=== PATIENT | female | born 1990 | race Hispanic/Latino ===

== ENCOUNTER 2017-02-20 14:46 | Emergency (ER) | payer MEDICAID, OTHER ==
[~2017-02-20 14:46] MED LIST: DOCU-116 PO; IBUP-2071 PO
[2017-02-20 15:08] LABS: APPEARANCE,URINE Clear (CLEAR); BILIRUBIN,URINE Negative (NEGATIVE); COLOR,URINE Yellow (YELLOW); GLUCOSE, URINE (UA) Negative (NEGATIVE); KETONES,URINE Negative (NEGATIVE); LEUKOCYTE ESTERASE ,URINE Large (NEGATIVE); NITRATE,URINE Negative (NEGATIVE); OCCULT BLOOD,URINE Negative (NEGATIVE); PROTEIN,URINE Negative (NEGATIVE)
[2017-02-20 15:09] LABS: HCG,QUAL RESULT POSITIVE (NEGATIVE)
[2017-02-20 15:18] LABS: BACTERIA,URINE Few /HPF (None Seen); RBC,URINE None Seen /HPF (0-1)
[2017-02-20 16:35] LABS: BASOPHILS % (AUTO) 0.5 % (0.0-5.0); EOSINOPHILS % (AUTO) 2.6 % (0.0-8.0); HEMATOCRIT 39.5 % (36-48); MEAN CORPUSCULAR HGB CONC 33.5 g/dL (32.0-36.0); MEAN CORPUSCULAR VOLUME 86.6 fL (79-99); MONOCYTES % (AUTO) 6.7 % (3.0-13.0); NEUTROPHILS % (AUTO) 67.2 % (40.0-77.0); NUCLEATED RED BLOOD CELLS 0.1 % (0.0-0.19); PLATELET COUNT (AUTO) 198 K/uL (130-400); RED BLOOD CELL COUNT(AUTO) 4.56 MIL/uL (4.00-5.50); RED CELL DISTRIBUTION WIDTH 15.4 % (11.0-15.5); WHITE BLOOD COUNT (AUTO) 8.4 K/uL (4.8-10.8)
[2017-02-20 16:45] LABS: CREATININE 0.5 mg/dL (0.5-1.5); POTASSIUM 3.5 mmol/L (3.5-5.1)
[2017-02-20 17:11] LABS: ALBUMIN 3.2 g/dL (3.5-5.0); BILIRUBIN,TOTAL 0.3 mg/dL (0.2-1.0); TOTAL PROTEIN, SERUM 7.5 g/dL (6.0-8.3)
== END 2017-02-20 17:31 | disposition home or self-care (01) ==
LOC: EDH 14:46
DX: O20.0 Threatened abortion (principal); Z3A.10 10 weeks gestation of pregnancy
CPT/HCPCS: 36415; 76801; 80053; 81001; 81025; 84702; 85025; 86900; 86901

== ENCOUNTER 2017-06-25 23:33 | Observation (INO) | payer MEDICAID, OTHER ==
[~2017-06-25] VITALS: Ht 157.5 cm; Wt 64.4 kg
[2017-06-26 00:34] LABS: APPEARANCE,URINE Clear (CLEAR); BILIRUBIN,URINE Negative (NEGATIVE); COLOR,URINE Yellow (YELLOW); GLUCOSE, URINE (UA) Negative (NEGATIVE); KETONES,URINE 15 mg/dL (NEGATIVE); LEUKOCYTE ESTERASE ,URINE Small (NEGATIVE); NITRATE,URINE Negative (NEGATIVE); OCCULT BLOOD,URINE Trace (NEGATIVE); PROTEIN,URINE Negative (NEGATIVE); UROBILINOGEN,URINE 0.2 mg/dL (0.2-1.0)
[2017-06-26] MEDS: LACTATED RINGERS 1000ML 1,000 ML IV SCH ×2 (00:36→02:00)
[2017-06-26 00:42] LABS: AMPHET/METH SCREEN,URINE NEGATIVE (NEGATIVE); BARBITURATE SCREEN, URINE NEGATIVE (NEGATIVE); BENZODIAZEPINES SCREEN,URINE NEGATIVE (NEGATIVE); CANNABINOID SCREEN,URINE NEGATIVE (NEGATIVE); COCAINE SCREEN,URINE NEGATIVE (NEGATIVE); OPIATE SCREEN,URINE NEGATIVE (NEGATIVE); PHENCYCLIDINE SCREEN,URINE NEGATIVE (NEGATIVE)
[2017-06-26 00:56] LABS: BACTERIA,URINE Rare /HPF (None Seen); RBC,URINE None Seen /HPF (0-1); WBC,URINE 0-1 /HPF (0-1)
[2017-06-26] MEDS ORDERED: TERBUTALINE SULFATE VIAL 1MG/ML SQ ONE ×2 (03:00→03:02)
[2017-06-26] MEDS ORDERED: LACTATED RINGERS 1000ML 1,000 ML IV SCH (03:00)
[2017-06-26] MEDS ORDERED: MAGNESIUM SULFATE 1,000 ML IV PRN (04:40)
[2017-06-26] MEDS ORDERED: AMPICILLIN 2GM+NS 100ML 100 ML IV SCH (04:45)
[2017-06-26] MEDS ORDERED: PHARMACY COMMUNICATION MISC SCH (04:45)
[2017-06-26] MEDS ORDERED: MAGNESIUM 4GM PREMIX 100ML 100 ML IV SCH (04:45)
[2017-06-26] MEDS ORDERED: CALCIUM GLUCONATE 1 GM/10 ML VIAL IV PRN (04:45)
[2017-06-26] MEDS ORDERED: MAGNESIUM SULFATE 1,000 ML IV ONE (04:52)
[2017-06-26] MEDS ORDERED: AMPICILLIN 2GM+NS 100ML 100 ML IV ONE (04:52)
[2017-06-26] MEDS ORDERED: MAGNESIUM 4GM PREMIX 100ML 100 ML IV ONE (04:52)
[2017-06-26] MEDS ORDERED: CELESTONE SOLUSPAN 6 MG/ML 5ML VIAL ONE (04:53)
[2017-06-26 05:32] LABS: HEMATOCRIT 31.1 % (36-48); MEAN CORPUSCULAR HEMOGLOBIN 27.7 pg (27.0-33.0); MEAN CORPUSCULAR HGB CONC 33.5 g/dL (32.0-36.0); MEAN CORPUSCULAR VOLUME 82.7 fL (79-99); PLATELET COUNT (AUTO) 223 K/uL (130-400); RED BLOOD CELL COUNT(AUTO) 3.76 MIL/uL (4.00-5.50); RED CELL DISTRIBUTION WIDTH 14.4 % (11.0-15.5); WHITE BLOOD COUNT (AUTO) 9.9 K/uL (4.8-10.8)
[2017-06-26 11:26] LABS: RAPID PLASMA REAGIN NONREACTIVE (NONREACTIVE)
[2017-06-26] MEDS: AMPICILLIN 1GM+NS 50ML 50 ML IV SCH ×4 (11:45→23:58)
[2017-06-27] MEDS: AMPICILLIN 1GM+NS 50ML 50 ML IV SCH (03:46)
[2017-06-28 08:22] LABS: HEPATITIS Bs ANTIGEN SCREEN P Negative (Negative)
== END 2017-06-27 09:30 | disposition home or self-care (01) ==
LOC: EDH 23:33 → LDH 23:34
PROVIDERS: ADMIT Obstetrics & Gynecology; ATTEND Obstetrics & Gynecology
DX: O62.9 Abnormality of forces of labor, unspecified (principal); O60.03 Preterm labor without delivery, third trimester; Z3A.28 28 weeks gestation of pregnancy; Z90.49 Acquired absence of other specified parts of digestive tract
CPT/HCPCS: 36415; 76805; 80305; 81001; 85027; 86592; 86701; 86850; 86900; 86901; 87340; 87390; 96361 ×4; 96365; 96366 ×2; 96368; 96372; 96375; 96376 ×2; 99285; A4314; G0378 ×34; J0290 ×6; J0702; J3105; J3475 ×2; J7120 ×3; 96360

== ENCOUNTER 2018-04-19 11:40 | Emergency (ER) | payer MEDICAID, OTHER ==
[2018-04-19 12:44] LABS: RAPID GROUP A STREP NEGATIVE (NEGATIVE)
== END 2018-04-19 12:50 | disposition home or self-care (01) ==
LOC: EDH 11:40
DX: J09.X2 Influenza due to identified novel influenza A virus with other respiratory manifestations (principal); Z90.710 Acquired absence of both cervix and uterus; Z90.49 Acquired absence of other specified parts of digestive tract
CPT/HCPCS: 87804; 87880

== ENCOUNTER 2021-10-31 10:58 | Emergency (ER) | payer OTHER ==
[~2021-10-31] VITALS: Ht 152.4 cm; Wt 58.5 kg
[2021-10-31 11:00] VITALS: BP 122/39
[2021-10-31] MEDS ORDERED: IBUP-1493 PO (11:39)
[2021-10-31] MEDS ORDERED: AMOX1TAB16 PO (11:39)
== END 2021-10-31 12:05 | disposition home or self-care (01) ==
LOC: EDH 10:58
DX: K04.7 Periapical abscess without sinus (principal); Z79.1 Long term (current) use of non-steroidal anti-inflammatories (NSAID); Z90.49 Acquired absence of other specified parts of digestive tract